=== PATIENT | female | born 1980 | race Caucasian/White ===

== ENCOUNTER 2020-11-17 19:47 | Emergency (ER) | payer OTHER ==
[2020-11-17 20:12] LABS: BASOPHIL 0.3 % (0-2); EOSINOPHIL 1.1 % (0-5); HCT 37.3 % (37.0-47.0); HGB 12.3 g/dl (12.5-16.0); LYMPHOCYTE 34.6 % (15-48); MCH 29.9 pg (25.0-31.0); MCV 90.5 fL (78.0-100.0); MONOCYTE 6.4 % (0-12); MPV 9.3 fL (6.0-9.5); NEUTROPHIL 57.2 % (41-80); NRBC 0; PLT 225 K/uL (150-400); RBC 4.12 M/uL (4.20-5.40); RDW 12.9 % (11.5-14.0); WBC 9.4 K/uL (4.0-10.5)
[2020-11-17 20:25] LABS: ALBUMIN 3.6 g/dL (3.4-5.0); BILIRUBIN - TOTAL 0.4 mg/dL (0.2-1.0); BUN/CREAT RATIO (CALC) 6.8 RATIO; CREATININE 0.73 mg/dL (0.51-0.95); GLOBULIN (CALCULATION) 3.9 g/dL; POTASSIUM 3.3 mmol/L (3.5-5.1); TOTAL PROTEIN 7.5 g/dL (6.4-8.2)
[2020-11-17 22:31] LABS: BILIRUBIN NEGATIVE (NEGATIVE); BLOOD NEGATIVE Ery/uL (NEGATIVE); CLARITY CLEAR (CLEAR); COLOR YELLOW (YELLOW); GLUCOSE (U) NORMAL (NORMAL); LEUKOCYTES NEGATIVE Leu/uL (NEGATIVE); NITRITE NEGATIVE (NEGATIVE); PROTEIN NEGATIVE (NEGATIVE); SPECIFIC GRAVITY 1.015 (1.001-1.030); UROBILINOGEN 0.2 mg/dL (0.2-1.0)
[2020-11-17 22:36] LABS: BARBITURATES NEGATIVE (NEGATIVE); ECSTASY (MDMA) NEGATIVE (NEGATIVE); MARIJUANA (THC) POSITIVE (NEGATIVE); METHADONE NEGATIVE (NEGATIVE); OPIATES NEGATIVE (NEGATIVE)
[2020-11-17 22:37] LABS: AMPHETAMINES POSITIVE (NEGATIVE); OXYCODONE NEGATIVE (NEGATIVE)
[2020-11-17 22:52] LABS: FLU B NEGATIVE B (NEGATIVE B)
[2020-11-18] MEDS ORDERED: KLONOPIN1 MG PO (03:40)
[2020-11-19 10:11] LABS: HBSAG SCREEN Negative (Negative); HEP A AB, IGM Negative (Negative); HEP B CORE AB, IGM Positive (Negative); HEP C VIRUS AB <0.1 (0.0-0.9)
== END 2020-11-18 03:55 | disposition home or self-care (01) ==
LOC: FER 19:47
PROVIDERS: Emergency Medicine
DX: U07.1 COVID-19 (principal); F19.10 Other psychoactive substance abuse, uncomplicated; F17.200 Nicotine dependence, unspecified, uncomplicated; J44.9 Chronic obstructive pulmonary disease, unspecified
CPT/HCPCS: 36415; 80053; 80074; 80305; 81003; 83690; 85025; 87804; 87899; J1885; J2310; J2405; Q9967; U0002